=== PATIENT | male | born 1965 | race Caucasian/White ===

== ENCOUNTER → 2017-12-01 | Outpatient (CLI) | payer BC ==
[~2017-12-01] MED LIST: ALBU90OI6 INH; AZIT250 PO; HYDCHL25 PO; LISI20 PO; LISINOPRIL 30 MG; POTCHL10ER PO; PRAV20 PO; Zithromax250 MG PO
[2017-12-01 13:13] LABS: CHOL/HDL RATIO 3.8; Cholesterol 148 mg/dL (50-200); HDL Cholesterol 39 mg/dL (>39); LDL/HDL RATIO 2.1; Low Density Lipoprotein Chol 82 mg/dL (0-110); Triglycerides 135 mg/dL (30-160); Very Low Density Lipoprot Chol 27 mg/dL (6-32)
== END ==
LOC: LAB SHORT 12:32
PROVIDERS: Emergency Medicine
DX: Z13.1 Encounter for screening for diabetes mellitus (principal)
CPT/HCPCS: 80061; 83036

== ENCOUNTER 2021-04-17 08:27 | Day surgery (SDC) | payer BC ==
[~2021-04-17] VITALS: Ht 167.6 cm; Wt 71.9 kg
[2021-04-17] MEDS ORDERED: Apple Cider Vi300 MG (09:21)
== END 2021-04-17 10:40 | disposition home or self-care (01) ==
LOC: ORSCSDS 08:27
PROVIDERS: Internal Medicine Gastroenterology
PROC: 0DBK8ZX Excision of Ascending Colon, Via Natural or Artificial Opening Endoscopic, Diagnostic (ICD-10-PCS; principal; 2021-04-17 09:45)
PROC: 0DBP8ZX Excision of Rectum, Via Natural or Artificial Opening Endoscopic, Diagnostic (ICD-10-PCS; principal; 2021-04-17 09:45)
DX: Z12.11 Encounter for screening for malignant neoplasm of colon (principal); D12.2 Benign neoplasm of ascending colon; K62.1 Rectal polyp; K64.8 Other hemorrhoids; K57.30 Diverticulosis of large intestine without perforation or abscess without bleeding; I10 Essential (primary) hypertension; Z87.891 Personal history of nicotine dependence
CPT/HCPCS: 82947; 88305; J2704; J7120

== ENCOUNTER 2021-10-18 14:38 | Emergency (ER) | payer BC ==
[~2021-10-18] VITALS: Ht 167.6 cm; Wt 74.8 kg
[~2021-10-18 14:38] MED LIST changes: +Apple Cider Vi300 MG
== END 2021-10-18 16:40 | disposition home or self-care (01) ==
LOC: ER 14:38
DX: M54.42 Lumbago with sciatica, left side (principal); I10 Essential (primary) hypertension; E78.5 Hyperlipidemia, unspecified
CPT/HCPCS: 96372; 96374; 96375; 99283-25; J1885